=== PATIENT | male | born 1970 | race Caucasian/White ===

== ENCOUNTER 2017-09-27 03:44 | Emergency (ER) | payer OTHER ==
[~2017-09-27] VITALS: Ht 180.3 cm; Wt 117.9 kg
[~2017-09-27 03:44] MED LIST: ACAMPROSATE CA333 MG PO; ASPIRIN EC81 MG PO; BUSPIRONE HCL15 MG PO; CHLORDIAZEPOXID25 MG PO; DOXEPIN; HYDROXYZINE HCL10 MG PO; LANTUS SOL100 UNIT/1 SUB-Q; LISINOPRIL2.5 MG PO; METFORMIN HCL850 MG PO; NOVOLOG FL100 UNIT/1 SUB-Q; OMEPRAZOLE20 MG PO; PAROXETINE HCL20 MG PO; PROVENTIL HFA6.7 GM INH; SERTRALINE HCL100 MG PO; TESTOSTERO200 MG/11 IM; VITAMIN B-1100 MG PO
[2017-09-27] MEDS ORDERED: ZOFRAN ODT4 MG PO (06:00)
--- NOTE | 2017-09-27 21:55 | EKG ---
[facility] [address] [facility] [place], [place] [address] Signed Normal sinus rhythm Inferior infarct , age undetermined Abnormal ECG No previous ECGs available Confirmed by PACO COLES MD ([id number]) on 09/27/2017 9:55:29 PM Electronically Signed By: PACO COLES MD 09/27/17 2155 PATIENT NAME: MARIXA LYN [facility] Electrocardiogram DATE OF : 70 PHYSICIAN: PACO COLES MD REPORT #: [id number] REPORT IS CONFIDENTIAL AND NOT TO BE RELEASED WITHOUT AUTHORIZATION
== END 2017-09-27 06:08 ==
LOC: ED 03:44
DX: K29.70 Gastritis, unspecified, without bleeding (principal); F10.10 Alcohol abuse, uncomplicated; J44.9 Chronic obstructive pulmonary disease, unspecified; F17.200 Nicotine dependence, unspecified, uncomplicated; Z79.899 Other long term (current) drug therapy; Y90.6 Blood alcohol level of 120-199 mg/100 ml
CPT/HCPCS: 71046; 80053; 83690; 84484; 85025; 85610; 85730; 93005; 93010; 96374; 96375; 99284; G0480; J2405; J3411; J7030

== ENCOUNTER 2018-06-17 17:46 | Emergency (ER) | payer MEDICAID ==
[~2018-06-17] VITALS: Ht 182.9 cm; Wt 122.5 kg
[~2018-06-17 17:46] MED LIST changes: +ZOFRAN ODT4 MG PO
--- OUTSIDE RECORDS SUMMARY | 2018-06-17 17:48 | XMS ---
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 No recent Security Events currently on file CRITERIA MET - [facility] - Has Care Guidelines - [facility] - 3 Facilities in 90 Days CARE PROVIDERS ABHIJIT MONTALVO Nurse Practitioner: 05/06/2015-Current PHONE: Unknown SAMANTA RODRIGUEZ [facility] 05/06/2015-Current PHONE: [phone] SAMANTA RODRIGUEZ Primary Care 05/06/2015-Current PHONE: [phone] [facility] Mental Health Provider 09/09/2017-Current for [facility] PHONE: [phone] LEGACY PATIENT Primary Care [facility] SERVICES PHONE: Unknown SAMAN LEVINE Primary Care Current PHONE: Unknown R MYRIAM DOAN Primary Care Current PHONE: Unknown [facility] Primary Care 05/06/2015-Current PHONE: [phone] SHAEYLINE Primary Care Current PHONE: Unknown Gopi has no Care Guidelines for this patient. Care History Medical/Surgical 09/28/2017 [facility] - Patient seen in the ED. Patient stated he was on his way to the detox center in [place] and then decided to change his mind once him and his girlfriend got into argument. - CHW Is trying to contact patient to see if patient has entered treatment at the detox facility or if he has gone back to the [facility]. - IF patient is seen at [facility] and patient is willing to accept help at the detox facility please contact [facility] [phone] to see if patient can be accepted from the ED. Care Recommendation: This patient has had 5 or more Emergency Department visits in the last 12 months. Patient requires education on the scope and purpose of the ED as an acute care provider not a Primary Care Provider and should not be utilized for chronic conditions. If patient returns to ED please contact Community Health WorkerAlessandra at [phone]. These are guidelines and the provider should exercise clinical judgment when providing care. E.D. VISIT COUNT (12 MO.) 2 Hayden Stanley 1 Hayden Stewart 1 [facility] 5 [facility] H. 3 [place] [facility] 2 [facility]. TOTAL 14 NOTE: Visits indicate total known visits. ED/UCC VISIT TRACKING (12 MO.) 06/17/2018 17:47 MARGARITO Botello TYPE: Emergency COMPLAINT: - ALCOHOL INTOXICATION 04/20/2018 23:35 Soo CASTILLO TYPE: Emergency 04/07/2018 15:44 [facility] DIAGNOSES: - Alcholosim - Alcohol Problem - Alcohol use, unspecified with intoxication, uncomplicated - Alcohol abuse, uncomplicated 11/30/2017 16:51 [facility] TYPE: Emergency DIAGNOSES: - Abdominal Pain - Alcohol use, unspecified with intoxication, uncomplicated - Alcoholic gastritis without bleeding - Alcohol abuse, uncomplicated 11/26/2017 19:08 Soo CASTILLO TYPE: Emergency 11/25/2017 10:28 [facility]. TYPE: Emergency DIAGNOSES: - Alcohol Problem - Epigastric pain - Alcohol use, unspecified with intoxication, unspecified - Other symptoms and signs involving emotional state 09/27/2017 03:44 MARGARITO Botello TYPE: Emergency COMPLAINT: - CHEST PAIN DIAGNOSES: - Nicotine dependence, unspecified, uncomplicated - Chest pain, unspecified - Blood alcohol level of 120-199 mg/100 ml - Other residential (current) drug therapy - Chronic obstructive pulmonary disease, unspecified - Gastritis, unspecified, without bleeding - Alcohol abuse, uncomplicated 09/10/2017 15:52 Hayden Navarro [place] TYPE: Emergency DIAGNOSES: - Alcohol abuse, uncomplicated - ETOH - group home (current) use of insulin - Type 2 diabetes mellitus without complications 09/10/2017 12:58 Hayden Navarro [place] TYPE: Emergency DIAGNOSES: - ALCOHOL WITHDRAWAL 09/07/2017 22:44 [facility] TYPE: Emergency DIAGNOSES: - Diarrhea, unspecified - Alcohol abuse, uncomplicated - Abdominal Pain - Vomiting, unspecified [facility] DIAGNOSES: 15760. ALCOHOL WITHDRAWAL [id number]. Alcohol dependence with withdrawal, uncomplicated 07/01/2017 12:39 Hayden Stewart [place] JACKI TYPE: Emergency DIAGNOSES: - WITHDRAWAL 06/29/2017 12:52 [facility] TYPE: Emergency DIAGNOSES: - Alcohol use, unspecified with intoxication, uncomplicated - Alcoholism - Alcohol Problem - Alcohol abuse, uncomplicated - Hyperglycemia, unspecified 06/26/2017 00:37 Soo CASTILLO TYPE: Emergency INPATIENT VISIT TRACKING (12 MO.) No inpatient visits to display in this time frame [email or web address]
[2018-06-17] MEDS ORDERED: JARDIANCE10 MG PO (18:40)
== END 2018-06-17 19:41 | disposition home or self-care (01) ==
LOC: ED 17:46
DX: F10.229 Alcohol dependence with intoxication, unspecified (principal); J44.9 Chronic obstructive pulmonary disease, unspecified; E11.9 Type 2 diabetes mellitus without complications; F32.9 Major depressive disorder, single episode, unspecified; F41.9 Anxiety disorder, unspecified; F17.200 Nicotine dependence, unspecified, uncomplicated; Z79.899 Other long term (current) drug therapy; Z79.4 Long term (current) use of insulin; Z79.82 Long term (current) use of aspirin
CPT/HCPCS: 99284